=== PATIENT | female | born 1950 | race Caucasian/White ===

== ENCOUNTER 2017-03-30 19:33 | Emergency (ER) | payer MEDICARE, OTHER ==
[~2017-03-30] VITALS: Ht 182.9 cm; Wt 100.0 kg
[2017-03-30 19:37] VITALS: BP 140/68; PULSE 67; TEMP 98.1
[2017-03-30] MEDS ORDERED: CRESTOR 10MG10 MG PO (19:41)
[2017-03-30] MEDS ORDERED: ASPIRIN 81M81 MG/TA2 PO (19:41)
[2017-03-30] MEDS ORDERED: PREDNISONE10 MG PO (19:41)
[2017-03-30] MEDS ORDERED: PRINIVIL10 MG PO (19:41)
[2017-03-30] MEDS ORDERED: CALCIUM 600MG+D1 TAB PO (19:42)
== END 2017-03-30 22:00 | disposition home or self-care (01) ==
LOC: COL.ER 19:33
DX: R60.0 Localized edema (principal); E78.5 Hyperlipidemia, unspecified; I10 Essential (primary) hypertension; Z79.82 Long term (current) use of aspirin; Z79.52 Long term (current) use of systemic steroids